=== PATIENT | female | born 1970 | race Caucasian/White ===

== ENCOUNTER 2018-09-05 05:58 | Day surgery (SDC) | payer OTHER ==
[2018-09-05] MEDS ORDERED: GLYCOPYRROLATE 0.4 MG INJ (08:20)
[2018-09-05] MEDS ORDERED: PROPOFOL 20 ML (08:20)
[2018-09-05] MEDS ORDERED: ROCURONIUM 50 MG INJ (08:20)
[2018-09-05] MEDS ORDERED: MIDAZOLAM 1 MG/ML 2 ML INJ (08:20)
[2018-09-05] MEDS ORDERED: CEFAZOLIN 1 GM INJ (08:20)
[2018-09-05] MEDS ORDERED: NEOSTIGMINE 3 MG/3 ML SYRINGE (08:20)
[2018-09-05] MEDS ORDERED: FENTAnyl 50 MCG/ML VIAL ×2 (08:21→08:57)
[2018-09-05] MEDS ORDERED: ONDANSETRON 4 MG INJ (08:21)
[2018-09-05] MEDS ORDERED: DEXAMETHASONE 4 MG/ML 5 ML INJ (08:21)
[2018-09-05] MEDS ORDERED: ROPIVACAINE 0.5 % 30 ML VIAL (08:28)
[2018-09-05] MEDS: CEFAZOLIN 2 GM/50 ML (PMX) 50 ML IVPB (08:30)
[2018-09-05] MEDS ORDERED: MEPERIDINE 25 MG INJ IV (08:30)
[2018-09-05] MEDS ORDERED: TRIMETHOBENZAMIDE 100 MG/ML VIAL IM (08:30)
[2018-09-05] MEDS ORDERED: IPRATROPIUM (NEB) 0.5 MG/2.5 ML AMP HHN (08:30)
[2018-09-05] MEDS ORDERED: EPHEDrine SULFATE 50 MG/5 ML SYG IV (08:30)
[2018-09-05] MEDS ORDERED: LABETALOL HCL 20MG INJ IV (08:30)
[2018-09-05] MEDS ORDERED: ALBUTEROL 0.083% (NEB) 2.5 MG/3 ML AMP HHN (08:30)
[2018-09-05] MEDS ORDERED: FENTAnyl 50 MCG/ML VIAL IV ×2 (08:30)
[2018-09-05] MEDS: SOD CHLORIDE 0.9% 1,000 ML IV (08:30)
[2018-09-05] MEDS ORDERED: MIDAZOLAM 1 MG/ML 2 ML INJ IV (08:30)
[2018-09-05] MEDS ORDERED: OXYCODONE/ACETAMINOPHEN (5/325) TAB PO (08:30)
[2018-09-05] MEDS ORDERED: hydrALAzine 20 MG INJ IV (08:30)
[2018-09-05] MEDS ORDERED: HYDROmorphONE 1 MG/5 ML IV SYRINGE IV (08:30)
[2018-09-05] MEDS ORDERED: SUGAMMADEX SODIUM 200 MG/2 ML VIAL IV (09:06)
[2018-09-05] MEDS: HYDROmorphONE 1 MG/5 ML IV SYRINGE IV ×2 (09:32→09:46)
[2018-09-05] MEDS: ONDANSETRON 4 MG INJ IV (09:32)
[2018-09-05] MEDS: FENTAnyl 50 MCG/ML VIAL IV ×2 (09:49→10:11)
[2018-09-05] MEDS: DIPHENHYDRAMINE 50 MG INJ IV (10:03)
[2018-09-05] MEDS: HYDROCODONE/APAP (5/325) TAB PO (11:16)
[2018-09-05] MEDS: OXYCODONE/ACETAMINOPHEN (5/325) TAB PO (12:11)
== END 2018-09-05 12:55 | disposition home or self-care (01) ==
LOC: SDS 05:58
DX: K43.6 Other and unspecified ventral hernia with obstruction, without gangrene (principal); E78.5 Hyperlipidemia, unspecified
CPT/HCPCS: 49653